=== PATIENT | female | born 1985 | race Caucasian/White ===

== ENCOUNTER 2017-06-20 18:08 | Emergency (ER) | payer OTHER ==
[~2017-06-20] VITALS: Ht 160 cm; Wt 84.4 kg
[~2017-06-20 18:08] MED LIST: SOM350 PO; VIC PO; XAN1 PO
[2017-06-20 18:10] VITALS: Ht 160 cm; Wt 84.4 kg
[2017-06-20 19:44] LABS: microscopic required? NO
[2017-06-20 19:49] LABS: BASOPHIL % 0.5 % (0-2); PLATELET COUNT 345 x10^3mcL (130-400); RED CELL DISTRIBUTION WIDTH 13.4 % (11.5-14.5)
[2017-06-20 19:51] LABS: UA SPECIFIC GRAVITY 1.015 (1.005-1.035); urine erythrocyte NEGATIVE (NEGATIVE)
[2017-06-20 19:58] LABS: CALCIUM 9.6 mg/dL (8.5-10.1); CARBON DIOXIDE 21.3 mmol/L (21-32); CHLORIDE SERUM 105 mmol/L (98-107); CREATININE SERUM 0.8 mg/dL (0.6-1.0); GFR1 > 60 mL/min; GLUCOSE SERUM 84 mg/dL (74-106); POTASSIUM SERUM 3.3 mmol/L (3.5-5.1); SODIUM SERUM 141 mmol/L (136-145)
[2017-06-20 20:02] LABS: ALBUMIN 3.7 g/dL (3.4-5.0); ALKALINE PHOSPHATASE 64 U/L (46-116); ALT/SGPT 18 U/L (14-59); AST/SGOT 16 U/L (15-37); BILIRUBIN TOTAL 0.47 mg/dL (0.20-1.00); TOTAL PROTEIN, SERUM 8.2 g/dL (6.4-8.2)
[2017-06-20 21:48] VITALS: BP 120/69
== END 2017-06-20 21:48 | disposition home or self-care (01) ==
LOC: ED 18:08
PROVIDERS: Emergency Medicine
DX: O26.891 Other specified pregnancy related conditions, first trimester (principal); I10 Essential (primary) hypertension; Z3A.00 Weeks of gestation of pregnancy not specified
CPT/HCPCS: 36415; Q0092

== ENCOUNTER 2018-09-05 04:32 | Emergency (ER) | payer BC, MEDICAID ==
[~2018-09-05] VITALS: Ht 160 cm; Wt 90.9 kg
[2018-09-05 04:38] VITALS: Ht 160 cm; Wt 90.9 kg
[2018-09-05 06:21] VITALS: BP 131/88
== END 2018-09-05 06:21 | disposition home or self-care (01) ==
LOC: ED 04:32
DX: S61.052A Open bite of left thumb without damage to nail, initial encounter (principal); S61.452A Open bite of left hand, initial encounter; W59.11XA Bitten by nonvenomous snake, initial encounter; Y93.89 Activity, other specified; Y92.89 Other specified places as the place of occurrence of the external cause; Y99.8 Other external cause status
CPT/HCPCS: J0690; J1200; J1885; J7030

== ENCOUNTER 2019-09-25 05:29 | Emergency (ER) | payer BC, MEDICAID ==
[~2019-09-25] VITALS: Ht 160 cm; Wt 88.9 kg
[2019-09-25 05:35] VITALS: Ht 160 cm; Wt 88.9 kg
[2019-09-25 06:07] VITALS: BP 136/86
== END 2019-09-25 06:07 | disposition home or self-care (01) ==
LOC: ED
DX: R05 Cough (principal); M79.10 Myalgia, unspecified site; R09.81 Nasal congestion; Z90.89 Acquired absence of other organs; Z20.828 Contact with and (suspected) exposure to other viral communicable diseases
CPT/HCPCS: U0003-CS